=== PATIENT | male | born 1985 | race American Indian/Alaskan Native ===

== ENCOUNTER 2018-08-17 11:49 | Emergency (ER) | payer SELFPAY ==
[2018-08-17 12:30] VITALS: BP 143/88
--- NOTE | 2018-08-17 12:30 | Emergency Department Report ---
Blank Doc - Documentation Documentation: 32 y o male presents with intermittent chest pain started today, sharp pain localized to mid chest worsened with coughing and certain movement hx of Anxiety on xanax, took one this am Pain is only felt with movement and cough xray ordered [facility] eval
--- NOTE | 2018-08-17 12:44 | XRay Report ---
ROUTINE CHEST, TWO VIEWS: HISTORY: Pain. The trachea, heart, mediastinal contour, lung pena and bony thorax are unremarkable. IMPRESSION: Unremarkable chest x-ray.
--- NOTE | 2018-08-17 12:53 | Emergency Department Report ---
ED Chest Pain HPI - General Chief Complaint: Chest Pain Stated Complaint: PAIN IN CHEST Time Seen by Provider: 08/17/18 12:27 Source: patient Mode of arrival: Ambulatory Limitations: No Limitations - History of Present Illness Initial Comments: 32 y/o M, only hx anxiety noted midsternal (lower) sharp pain this AM a few times but only with certain movements and if he coughs otherwise no pain no associated sx MD Complaint: chest pain -: Gradual, This morning Onset: during rest Pain Location: other (midsternal) Pain Radiation: none Severity: mild Severity scale (0 -10): 0 Quality: sharp Consistency: intermittent Improves With: nothing Worsens With: movement re: denies: nausea, vomting, diaphoresis, dyspnea Other Symptoms: cough. denies: fever Treatments Prior to Arrival: none Aspirin use within the Past 7 Days: (0) No - Related Data Previous Rx's Medication Instructions Recorded Last Taken Type Hyoscyamine Subl [Levsin Sl] 0.125 mg SL Q4HR PRN #12 tablet 03/29/13 Unknown Rx Allergies Allergy/AdvReac Type Severity Reaction Status Date / Time No Known Allergies Allergy Verified 08/17/18 11:50 Heart Score - HEART Score History: Slightly suspicious EKG: Normal Age: < 45 Risk factors: No known risk factors Troponin: < normal limit HEART Score: 0 ED Review of Systems ROS: Stated complaint: PAIN IN CHEST Other details as noted in HPI Comment: All other systems reviewed and negative Cardiovascular: as per HPI ED Past Medical Hx - Past Medical History Hx Psychiatric Treatment: Yes (anxiety) Hx Asthma: Yes - Surgical History Past Surgical History?: No - Social History Smoking Status: Never Smoker Substance Use Type: Alcohol - Medications Home Medications: Home Medications Medication Instructions Recorded Confirmed Last Taken Type Hyoscyamine Subl [Levsin Sl] 0.125 mg SL Q4HR PRN #12 tablet 03/29/13 Unknown Rx ED Physical Exam - General Limitations: No Limitations General appearance: alert, in no apparent distress - Head Head exam: Present: atraumatic, normocephalic - Eye Eye exam: Present: normal appearance - ENT ENT exam: Present: mucous membranes moist - Neck Neck exam: Present: normal inspection, full ROM. Absent: tenderness - Respiratory Respiratory exam: Present: normal lung sounds bilaterally. Absent: respiratory distress, wheezes - Cardiovascular Cardiovascular Exam: Present: regular rate, normal rhythm. Absent: systolic murmur, diastolic murmur, rubs, gallop - GI/Abdominal GI/Abdominal exam: Present: soft, normal bowel sounds. Absent: distended, tenderness - Rectal Rectal exam: Present: deferred - Extremities Exam Extremities exam: Present: normal inspection - Back Exam Back exam: Present: normal inspection - Neurological Exam Neurological exam: Present: alert, oriented X3 - Psychiatric Psychiatric exam: Present: normal affect, normal mood - Skin Skin exam: Present: warm, dry, intact, normal color. Absent: rash ED Course Vital Signs 08/17/18 12:28 Temperature 97.6 F Pulse Rate 96 H Respiratory 20 Rate Blood Pressure 143/88 [Right] O2 Sat by Pulse 100 Oximetry ED Medical Decision Making - EKG Data EKG shows normal: sinus rhythm, axis, intervals, QRS complexes, ST-T waves Rate: tachycardia (103) - EKG Data Interpretation: normal EKG - Radiology Data Radiology results: report reviewed normal cxr - Medical Decision Making chest wall pain only with movement and intermittent none now exam normal no concern acs, pe, dissection fu pcp - Differential Diagnosis chest wall pain, anxiety Critical care attestation.: If time is entered above; I have spent that time in minutes in the direct care of this critically ill patient, excluding procedure time. ED Disposition Clinical Impression: Atypical chest pain Disposition: DC-01 TO HOME OR SELFCARE Is pt being admited?: No Condition: Good Instructions: Chest Pain (ED), Costochondritis (ED) Referrals: RADHA BLACKWOOD MD [Primary Care Provider] - 3-5 Days Time of Disposition: 13:04
== END 2018-08-17 13:29 | disposition home or self-care (01) ==
LOC: ED 11:49
DX: R07.2 Precordial pain (principal); J45.909 Unspecified asthma, uncomplicated
CPT/HCPCS: 71046; 93005; 93010; 99283

== ENCOUNTER 2019-04-11 13:36 | Emergency (ER) | payer SELFPAY ==
--- NOTE | 2019-04-11 15:21 | Emergency Department Report ---
Blank Doc - Documentation Documentation: 33-year-old male that presents with chest pain and SOB. This initial assessment/diagnostic orders/clinical plan/treatment(s) is/are subject to change based on patient's health status, clinical progression and re- assessment by fellow clinical providers in the ED. Further treatment and workup at subsequent clinical providers discretion. Patient/guardians urged not to elope from the ED as their condition may be serious if not clinically assessed and managed. Initial orders include: 1- Patient sent to [facility] for further evaluation and treatment 2- labs
[2019-04-11 15:53] LABS: Basophils % (Auto) 0.3 % (0.0-1.8); Eosinophils % (Auto) 0.8 % (0.0-4.3); Hematocrit 46.7 % (35.5-45.6); Hemoglobin 15.7 gm/dl (11.8-15.2); Lymphocytes # (Auto) 2.5 K/mm3 (1.2-5.4); Lymphocytes % (Auto) 41.2 % (13.4-35.0); Mean Corpuscular HGB Conc 34 % (32-34); Mean Corpuscular Volume 90 fl (84-94); Monocytes # (Auto) 0.4 K/mm3 (0.0-0.8); Monocytes % (Auto) 6.6 % (0.0-7.3); Platelet Count 201 K/mm3 (140-440); Red Blood Count 5.17 M/mm3 (3.65-5.03); Red Cell Distribution Width 13.8 % (13.2-15.2)
--- NOTE | 2019-04-11 16:16 | XRay Report ---
CHEST 2 VIEWS INDICATION: Chest Pain. COMPARISON: 08/17/2018 FINDINGS: Support devices: None. Heart: Within normal limits. Pulmonary vasculature: Normal. Lungs/pleura: No acute air space or interstitial disease. No pneumothorax. Additional findings: None. IMPRESSION: 1. No acute findings. Signer Name: Tao Lopez MD Signed: 04/11/2019 4:12 PM Workstation Name: [id number]
[2019-04-11 16:20] LABS: Alanine Aminotransferase 87 units/L (7-56); Albumin 4.7 g/dL (3.9-5); BUN/Creatinine Ratio 16; Blood Urea Nitrogen 14 mg/dL (9-20); Calcium 9.8 mg/dL (8.4-10.2); Hemolysis Index 16
--- NOTE | 2019-04-11 20:37 | Emergency Department Report ---
ED General Adult HPI - General Chief complaint: Chest Pain Stated complaint: CHEST PAIN/SOB Time Seen by Provider: 04/11/19 15:19 Source: patient Mode of arrival: Ambulatory Limitations: No Limitations - History of Present Illness Initial comments: Patient presents to the emergency department the chief complaint of left chest twitching that started at 12:30 PM today. Patient states she has a history of anxiety and takes Xanax for his anxiety. Patient states about 12:30 today he began to get the feeling as if he was having an anxiety attack and taking Xanax was only worse but did not work today. Patient states she's had anxiety for the last year after the of his [place]. Patient states that the symptoms feel just like previous anxiety issues. Patient is chest pain-free currently. Patient denies shortness of breath or recent travel. -: Sudden Location: chest Radiation: non-radiation Severity scale (0 -10): 1 Quality: other (twitching) - Related Data Previous Rx's Medication Instructions Recorded Last Taken Type Hyoscyamine Subl [Levsin Sl] 0.125 mg SL Q4HR PRN #12 tablet 03/29/13 Unknown Rx Allergies Allergy/AdvReac Type Severity Reaction Status Date / Time No Known Allergies Allergy Verified 04/11/19 13:52 ED Review of Systems ROS: Stated complaint: CHEST PAIN/SOB Other details as noted in HPI Constitutional: denies: chills, fever Eyes: denies: eye pain, eye discharge, vision change ENT: denies: ear pain, throat pain Respiratory: denies: cough, shortness of breath, wheezing Cardiovascular: denies: chest pain, palpitations Endocrine: no symptoms reported Gastrointestinal: denies: nausea, diarrhea Genitourinary: denies: urgency, dysuria Musculoskeletal: denies: back pain, joint swelling, arthralgia Skin: denies: rash, lesions Neurological: denies: headache, weakness, paresthesias Psychiatric: denies: anxiety, depression Hematological/Lymphatic: denies: easy bleeding, easy bruising ED Past Medical Hx - Past Medical History Previous Medical History?: Yes Hx Psychiatric Treatment: Yes (anxiety) Hx Asthma: Yes - Surgical History Past Surgical History?: No - Social History Smoking Status: Never Smoker Substance Use Type: Alcohol - Medications Home Medications: Home Medications Medication Instructions Recorded Confirmed Last Taken Type Hyoscyamine Subl [Levsin Sl] 0.125 mg SL Q4HR PRN #12 tablet 03/29/13 Unknown Rx ED Physical Exam - General Limitations: No Limitations General appearance: alert, in no apparent distress - Head Head exam: Present: atraumatic, normocephalic - Eye Eye exam: Present: normal appearance, PERRL, EOMI - ENT ENT exam: Present: mucous membranes moist - Neck Neck exam: Present: normal inspection - Respiratory Respiratory exam: Present: normal lung sounds bilaterally. Absent: respiratory distress - Cardiovascular Cardiovascular Exam: Present: regular rate, normal rhythm. Absent: systolic murmur, diastolic murmur, rubs, gallop - GI/Abdominal GI/Abdominal exam: Present: soft, normal bowel sounds. Absent: distended, tenderness - Rectal Rectal exam: Present: deferred - Extremities Exam Extremities exam: Present: normal inspection - Back Exam Back exam: Present: normal inspection - Neurological Exam Neurological exam: Present: alert, oriented X3, CN II-XII intact. Absent: motor sensory deficit - Psychiatric Psychiatric exam: Present: normal affect, normal mood - Skin Skin exam: Present: warm, dry, intact, normal color. Absent: rash ED Course Vital Signs 04/11/19 04/11/19 14:01 15:21 Temperature 98.0 F Pulse Rate 122 H 106 H Respiratory 22 Rate Blood Pressure 161/92 O2 Sat by Pulse 98 Oximetry ED Medical Decision Making - Lab Data Result diagrams: 04/11/19 15:40 04/11/19 15:40 Lab Results 04/11/19 04/11/19 Range/Units 15:40 15:40 WBC 6.0 (4.5-11.0) K/mm3 RBC 5.17 H (3.65-5.03) M/mm3 Hgb 15.7 H (11.8-15.2) gm/dl Hct 46.7 H (35.5-45.6) % MCV 90 (84-94) fl MCH 30 (28-32) pg MCHC 34 (32-34) % RDW 13.8 (13.2-15.2) % Plt Count 201 (140-440) K/mm3 Lymph % (Auto) 41.2 H (13.4-35.0) % [place] % (Auto) 6.6 (0.0-7.3) % Eos % (Auto) 0.8 (0.0-4.3) % Baso % (Auto) 0.3 (0.0-1.8) % Lymph # 2.5 (1.2-5.4) K/mm3 [place] # 0.4 (0.0-0.8) K/mm3 Eos # 0.0 (0.0-0.4) K/mm3 Baso # 0.0 (0.0-0.1) K/mm3 Seg Neutrophils % 51.1 (40.0-70.0) % Seg Neutrophils # 3.1 (1.8-7.7) K/mm3 Sodium 137 (137-145) mmol/L Potassium 4.3 (3.6-5.0) mmol/L Chloride 99.0 (98-107) mmol/L Carbon Dioxide 23 (22-30) mmol/L Anion Gap 19 mmol/L BUN 14 (9-20) mg/dL Creatinine 0.9 (0.8-1.5) mg/dL Estimated GFR > 60 ml/min BUN/Creatinine Ratio 16 % Glucose 90 (75-100) mg/dL Calcium 9.8 (8.4-10.2) mg/dL Total Bilirubin 0.30 (0.1-1.2) mg/dL AST 43 H (5-40) units/L ALT 87 H (7-56) units/L Alkaline Phosphatase 77 (35-129) units/L Troponin T < 0.010 (0.00-0.029) ng/mL Total Protein 8.4 H (6.3-8.2) g/dL Albumin 4.7 (3.9-5) g/dL Albumin/Globulin Ratio 1.3 % - EKG Data -: EKG Interpreted by [facility] EKG shows normal: sinus rhythm Rate: tachycardia - Radiology Data Radiology results: report reviewed - Medical Decision Making Patient states he is chest pain-free and ready for discharge Further workup discussed but the patient politely declined Critical care attestation.: If time is entered above; I have spent that time in minutes in the direct care of this critically ill patient, excluding procedure time. ED Disposition Clinical Impression: Anxiety, Nonspecific chest pain Disposition: DC-01 TO HOME OR SELFCARE Is pt being admited?: No Does the pt Need Aspirin: No Condition: Stable Instructions: Generalized Anxiety Disorder (ED), Noncardiac Chest Pain (ED) Additional Instructions: return if worse Referrals: PRIMARY CAREMD [Primary Care Provider] - 3-5 Days LEA HERRERA MD [Referring] - 3-5 Days Time of Disposition: 20:36
[2019-04-11 20:50] VITALS: BP 136/87
== END 2019-04-11 20:50 | disposition home or self-care (01) ==
LOC: ED 13:36
DX: F41.9 Anxiety disorder, unspecified (principal); J45.909 Unspecified asthma, uncomplicated; Z79.899 Other long term (current) drug therapy
CPT/HCPCS: 36415; 71046; 80053; 84484; 85025; 93005; 93010